=== PATIENT | male | born 1980 | race American Indian/Alaskan Native ===

== ENCOUNTER 2017-09-08 08:54 | Emergency (ER) | payer OTHER ==
[2017-09-08 10:07] LABS: Basophils % (Auto) 0.7 % (0.0-1.8); Eosinophils # (Auto) 0.1 K/mm3 (0.0-0.4); Eosinophils % (Auto) 3.7 % (0.0-4.3); Hematocrit 40.5 % (30.3-42.9); Hemoglobin 14.1 gm/dl (10.1-14.3); Lymphocytes # (Auto) 1.5 K/mm3 (1.2-5.4); Lymphocytes % (Auto) 41.6 % (13.4-35.0); Mean Corpuscular HGB Conc 35 % (30-34); Mean Corpuscular Hemoglobin 34 pg (28-32); Mean Corpuscular Volume 97 fl (79-97); Monocytes # (Auto) 0.4 K/mm3 (0.0-0.8); Monocytes % (Auto) 11.7 % (0.0-7.3); Platelet Count 225 K/mm3 (140-440); Red Blood Count 4.16 M/mm3 (3.65-5.03); Red Cell Distribution Width 12.5 % (13.2-15.2)
[2017-09-08 10:20] LABS: Alanine Aminotransferase 17 units/L (7-56); Albumin 4.3 g/dL (3.9-5); BUN/Creatinine Ratio 10; Blood Urea Nitrogen 8 mg/dL (7-17); Calcium 9.1 mg/dL (8.4-10.2); Hemolysis Index 13
[2017-09-08 11:47] LABS: Amphetamine Screen,Urine PRESUMPTIVE NEGATIVE; Benzodiazepines Screen,Urine PRESUMPTIVE NEGATIVE; Cannabinoid Screen,Urine PRESUMPTIVE NEGATIVE; Cocaine Screen,Urine PRESUMPTIVE NEGATIVE; Methadone Screen,Urine PRESUMPTIVE NEGATIVE; Opiate Screen,Urine PRESUMPTIVE NEGATIVE
[2017-09-08 11:51] LABS: Bilirubin,Urine NEG (Negative); Blood,Urine NEG (Negative); Color,Urine Yellow (Yellow); Protein,Urine <15 mg/dL mg/dL (Negative); WBC,Urine < 1.0 /HPF (0.0-6.0)
--- NOTE | 2017-09-08 12:57 | Emergency Department Report ---
HPI - General Chief Complaint: Psych Time Seen by Provider: 09/08/17 09:20 - HPI HPI: This is a 37-year-old male who presents to the emergency department with his sisters for a mental evaluation. Patient has a history of PTSD but otherwise no diagnosed psychiatric conditions. The patient has been hearing voices/having auditory hallucinations since June. He hears the devil and demons who tell him to do things. However he denies any homicidal or suicidal ideations and denies any visual hallucinations. Because of these hallucinations, the patient left his home [facility] and [facility] and drove directly to his sister's house and was sitting outside in his car. He did this because this morning he felt like someone attacked him and his sleep and that someone was trying to take pictures of him through the window. He denies any illicit drug use. ED Past Medical Hx - Past Medical History Hx HIV: Yes Additional medical history: PTSD - Social History Smoking Status: Current Every Day Smoker Substance Use Type: Alcohol ED Review of Systems ROS: Stated complaint: MH- 1013 Other details as noted in HPI Comment: All other systems reviewed and negative Constitutional: denies: chills, fever Eyes: denies: eye pain, eye discharge, vision change ENT: denies: ear pain, throat pain Respiratory: denies: cough, shortness of breath, wheezing Cardiovascular: denies: chest pain, palpitations Gastrointestinal: denies: abdominal pain, nausea, diarrhea Musculoskeletal: denies: back pain, joint swelling, arthralgia Skin: denies: rash, lesions Neurological: denies: headache, weakness, paresthesias, other Psychiatric: auditory hallucinations. denies: homicidal thoughts Physical Exam - Physical Exam Vital Signs: Vital Signs 09/08/17 09:02 Temperature 98.9 F Pulse Rate 84 Blood Pressure 132/82 O2 Sat by Pulse 99 Oximetry Physical Exam: GENERAL: The patient is well-developed well-nourished. HENT: Normocephalic. Atraumatic. Patient has moist mucous membranes. EYES: Extraocular motions are intact. Pupils equal reactive to light bilaterally. NECK: Supple. Trachea is midline. CHEST/LUNGS: Clear to auscultation. There is no respiratory distress noted. HEART/CARDIOVASCULAR: Regular. There is no tachycardia. There is no murmur. ABDOMEN: Abdomen is soft, nontender. Patient has normal bowel sounds. There is no abdominal distention. SKIN: Skin is warm and dry. NEURO: The patient is awake, alert, and oriented. The patient is cooperative. The patient has no focal neurologic deficits. The patient has normal speech. MUSCULOSKELETAL: There is no tenderness or deformity. There is no limitation range of motion. There is no evidence of acute injury. PSYCH: Patient mostly has a flat affect but does display some delusions and paranoia. ED Course Vital Signs 09/08/17 09:02 Temperature 98.9 F Pulse Rate 84 Blood Pressure 132/82 O2 Sat by Pulse 99 Oximetry - Reevaluation(s) Reevaluation #1: Just after the psych supervisor cutting and boning saw the patient, the patient went to leave the emergency department. The psych supervisor cutting and boning agrees that the patient appears to be a candidate to be a 1013. He appears to be showing some acute psychosis which I believe might be new onset schizophrenia. Once the patient came back to the emergency department he started displaying worsening of this psychosis. He is showing paranoia, delusions. He is mentioning things about doing female sacrifice in the room. He doesnt believe the ED staff works here. This just reiterates my concern for his current condition. He is not cooperative at this time and will be given Haldol 5 mg IM hopefully to help with the psychosis and provide him some rest as we seek inpatient psychiatric transfer. 09/08/17 13:13 ED Medical Decision Making - Lab Data Result diagrams: 09/08/17 09:29 09/08/17 09:29 - Medical Decision Making Patient presents with new onset of bizarre behavior including auditory hallucinations, paranoia, delusions. Labs are mostly unremarkable and do not show any etiology of his symptoms. He is admitted 1013 secondary to this acute psychosis appears medically cleared for psychiatric placement. - Differential Diagnosis schizophrenia, schizoaffective, bipolar disorder, depression, substance abu Critical Care Time: No Critical care attestation.: If time is entered above; I have spent that time in minutes in the direct care of this critically ill patient, excluding procedure time. ED Disposition Clinical Impression: Acute psychosis, Paranoia, Delusions Disposition: [id number]/TX-[id number] PSY HOSP/PSY UNIT Is pt being admited?: No Condition: Stable Referrals: PRIMARY MD ALINA [Primary Care Provider] - 3-5 Days Time of Disposition: 14:40
[2017-09-08] MEDS ORDERED: HALDOL ONE (13:13)
[2017-09-08] MEDS ORDERED: HALDOL IM ONE (13:13)
--- NOTE | 2017-09-09 13:18 | Consultation ---
History of Present Illness - Reason for Consult Consult date: 09/09/17 Reason for consult: Mental Health Evaluation Requesting physician: STEPH CRAIN - Chief Complaint Chief complaint: "I don't know what is happening" - History of Present Psychiatric Illness This is a 37-year-old male who presents to the emergency department with his sisters for a mental evaluation. Today the patient is calm and cooperative during the assessment. He started the interview talking about President Rajeev Franco and started rumbling about nothing logical. He had to be redirected several times to keep him on topic. He was asked why did he drive from [place], [place] to [facility], he stated, "The demons are attacking me, I had to get away." He stated that no one understand what he is going through. During the interview, he would pause before answering questions, possibly responding to some type of stimuli. He stated that prior to driving to [facility] from [place], [place] he had not slept for 6 days. He denies SI/HI's and AVH's. He admit to erratic sleep. He denies recreational drug use and alcohol consumption (etoh). Medications and Allergies Allergies Allergy/AdvReac Type Severity Reaction Status Date / Time No Known Allergies Allergy Unverified 09/08/17 09:05 Home Medications Medication Instructions Recorded Confirmed Last Taken Type No Known Home Medications [No 09/08/17 09/08/17 Unknown History Reported Home Medications] Past psychiatric history - Past Medical History Past Medical History: HIV/AIDS Past Surgical History: No surgical history - past Psychiatric treatment and history psychiatric treatment history: Acknowledge being dx with PTSD. - Social History Social history: Lives alone Mental Status Exam - Vital signs Last Vital Signs Temp 99.5 F 09/09/17 10:00 Pulse 103 H 09/09/17 10:00 Resp 18 09/09/17 12:46 BP 130/89 09/09/17 10:00 Pulse Ox 99 09/09/17 12:46 - Exam Narrative exam: MSE: Appearance: calm, cooperative Behavior: regular eye contact Speech: regular rate and tone Mood: "okay" Affect: congruent to mood Thought Process: circumstantial Thought Content: denies SI/HI's and AVH's, delusional, hyper jewish Motor Activity: ambulatory Cognition: A/O x3 Insight: poor Judgment: poor Results Result Diagrams: 09/08/17 09:29 09/08/17 09:29 All other labs normal. Assessment and Plan Assessment and plan: Impression: Unspecified Psychosis. Today the patient is calm and cooperative, but delusional during the assessment. UDS is negative. DDx: Bipolar DO, R/O Schizophrnenia, R/O Schizoaffective DO Recommendation/Plan: Continue 1013 with placement to inpatient psy services. Start Zyprexa 5 mg PO HS for psychosis and Trazodone 50 mg PO HS for sleep consolidation. Discussed possible metabolic side effects of Zyprexa with patient. Discussed possible suicidality/medication induced kaleigh/priapism with patient reference Trazodone.
[2017-09-09] MEDS: DESYREL PO SCH (21:59)
[2017-09-10] MEDS: [UNRECOGNIZED DRUG - OTHER] PO SCH (13:12)
[2017-09-10] MEDS: DESYREL PO SCH (22:19)
[2017-09-11] MEDS: [UNRECOGNIZED DRUG - OTHER] PO SCH (10:58)
[2017-09-11] MEDS: DESYREL PO SCH (22:30)
[2017-09-12] MEDS: [UNRECOGNIZED DRUG - OTHER] PO SCH (10:43)
--- NOTE | 2017-09-12 12:50 | Progress Note ---
Subjective - Reason for Consult Consult date: 09/12/17 Reason for consult: Psychiatry Follow-up - Chief Complaint Chief complaint: "I should be good now" This is a 37-year-old male who presents to the emergency department with his sisters for a mental evaluation. Today the patient is calm and cooperative during the assessment. He stated that the "demons are not after him anymore" but possible can return. He was asked about following up with a psychiatrist once discharged, he stated, "I don't need to." He is adamant that he is only "restoration not crazy." He denies SI/HI's and AVH's. He denies any side effects of his medications. Mental Status Exam - Vital signs Last Vital Signs Temp 99.1 F 09/11/17 20:00 Pulse 101 H 09/11/17 20:00 Resp 19 09/11/17 20:00 BP 111/80 09/11/17 20:00 Pulse Ox 99 09/11/17 20:00 - Exam Narrative exam: MSE: Appearance: calm, cooperative Behavior: regular eye contact Speech: regular rate and tone Mood: "okay" Affect: congruent to mood Thought Process: circumstantial Thought Content: denies SI/HI's and AVH's, delusional, hyper restoration Motor Activity: ambulatory Cognition: A/O x3 Insight: poor Judgment: poor Assessment and Plan Impression: Unspecified Psychosis. Today the patient is calm and cooperative, but delusional during the assessment. UDS is negative. DDx: Bipolar DO, R/O Schizophrnenia, R/O Schizoaffective DO Recommendation/Plan: Continue 1013 with placement at [facility]. Modify Zyprexa 5 mg PO BID for psychosis and Trazodone 50 mg PO HS for sleep consolidation. Discussed possible metabolic side effects of Zyprexa with patient. Discussed possible suicidality/medication induced kaleigh/priapism with patient reference Trazodone.
[2017-09-12 19:25] VITALS: BP 136/99
[2017-09-12] MEDS: DESYREL PO SCH (22:54)
== END 2017-09-12 23:38 ==
LOC: EDSEX → EEVIPCON 08:54 → ED 08:54
DX: F23 Brief psychotic disorder (principal); F22 Delusional disorders; F17.200 Nicotine dependence, unspecified, uncomplicated
CPT/HCPCS: 36415; 80053; 80307; 81001; 85025; 96372; 99285; G0480; J1630; 80320